=== PATIENT | male | born 1950 | race Caucasian/White ===

== ENCOUNTER 2018-05-02 08:55 | Outpatient (REF) | payer BC, SELFPAY ==
[2018-05-02 22:18] LABS: Anion Gap 7.2 mmol/L (3-11); BUN 21 mg/dL (7-18); CO2 29.8 mmol/L (21.0-32.0); CREATININE 0.95 mg/dL (0.70-1.30); Calcium 8.5 mg/dL (8.5-10.1); Chloride 104 mmol/L (98-107); Glucose 100 mg/dL (70-100); Potassium 4.3 mmol/L (3.5-5.1); Sodium 141 mmol/L (136-145); TSH (W/Ref FT4) 5.47 uIU/mL (0.358-3.74)
[2018-05-02 22:50] LABS: FREE T4 0.88 ng/dL (0.76-1.46)
[2018-05-04 09:35] LABS: PSA, Screening 0.9 ng/ml (0-4.5)
== END 2018-05-02 08:56 ==
LOC: NCHCN 08:55
PROVIDERS: Visit Provider Internal Medicine
DX: M54.5 Low back pain (principal); E05.00 Thyrotoxicosis with diffuse goiter without thyrotoxic crisis or storm; Z12.5 Encounter for screening for malignant neoplasm of prostate; Z80.42 Family history of malignant neoplasm of prostate
CPT/HCPCS: 80048; 84153; 84439; 84443

== ENCOUNTER 2018-09-17 08:57 | Outpatient (REF) | payer BC, SELFPAY ==
[2018-09-17 22:18] LABS: TSH (W/Ref FT4) 0.44 uIU/mL (0.358-3.74)
== END 2018-09-17 09:17 ==
LOC: NCHCN 08:57
PROVIDERS: Visit Provider Internal Medicine
DX: E03.9 Hypothyroidism, unspecified (principal)
CPT/HCPCS: 84443

== ENCOUNTER 2019-05-09 08:04 | Outpatient (REF) | payer BC, SELFPAY ==
[2019-05-09 21:48] LABS: Anion Gap 8.5 mmol/L (3-11); BUN 18 mg/dL (7-18); CO2 27.5 mmol/L (21.0-32.0); CREATININE 0.88 mg/dL (0.70-1.30); Calcium 8.9 mg/dL (8.5-10.1); Calculated LDL 113 mg/dL; Chloride 105 mmol/L (98-107); Cholesterol 179 mg/dL (50-200); Glucose 107 mg/dL (70-100); HDL Cholesterol 52 mg/dL (40-60); Potassium 4.2 mmol/L (3.5-5.1); Sodium 141 mmol/L (136-145); TSH (W/Ref FT4) 0.04 uIU/mL (0.36-3.74); Triglyceride 72 mg/dL (30-150)
[2019-05-09 22:06] LABS: FREE T4 1.44 ng/dL (0.76-1.46)
== END 2019-05-09 08:24 ==
LOC: NCHCN 08:04
PROVIDERS: Visit Provider Internal Medicine
DX: Z00.00 Encounter for general adult medical examination without abnormal findings (principal); E03.9 Hypothyroidism, unspecified; Z13.6 Encounter for screening for cardiovascular disorders; Z13.220 Encounter for screening for lipoid disorders; Z12.5 Encounter for screening for malignant neoplasm of prostate; Z80.42 Family history of malignant neoplasm of prostate
CPT/HCPCS: 80048; 80061; 84153; 84439; 84443

== ENCOUNTER 2019-11-19 08:33 | Outpatient (REF) | payer BC, SELFPAY ==
[2019-11-19 21:51] LABS: Hemoglobin A1C 5.4 % (3.8-5.6)
[2019-11-19 21:56] LABS: Glucose 90 mg/dL (74-106); TSH 0.08 uIU/mL (0.36-3.74)
== END 2019-11-19 08:53 ==
LOC: NCHCN 08:33
PROVIDERS: PCP Internal Medicine; Visit Provider Internal Medicine
DX: R73.03 Prediabetes (principal); E03.9 Hypothyroidism, unspecified
CPT/HCPCS: 82947; 83036; 84443

== ENCOUNTER 2020-02-04 08:40 | Outpatient (REF) | payer BC, SELFPAY ==
[2020-02-04 20:32] LABS: HCT 46.9 % (40.0-50.0); HGB 16.1 g/dL (13.5-17.5); Mean Corp. HGB Concentration 34.3 g/dL (32.0-36.0); Mean Corpuscular Hemoglobin 31.8 pg (27.0-33.0); Mean Corpuscular Volume 92.5 fL (80-95); Mean Platelet Volume 9.7 fL (8.0-11.0); Platelet Count 236 x1000/uL (130-400); RBC 5.07 m/cumm (4.50-6.00); RBC Distribution Width 12.9 % (11.8-14.1); White Blood Cell Count 5.42 k/cumm (4.4-10.8)
[2020-02-04 20:57] LABS: TSH 0.62 uIU/mL (0.36-3.74)
== END 2020-02-04 09:00 ==
LOC: NCHCN 08:40
PROVIDERS: PCP Internal Medicine; Visit Provider Internal Medicine
DX: E03.9 Hypothyroidism, unspecified (principal); D75.1 Secondary polycythemia
CPT/HCPCS: 85027; 84443

== ENCOUNTER 2020-05-19 21:37 | Outpatient (REF) | payer BC, SELFPAY ==
[2020-05-22 11:07] LABS: Patient Race White; SARS-CoV-2 RNA Undetected (Undetected); SARS-CoV-2 Specimen Source Nasal
== END 2020-05-19 21:57 ==
LOC: NCHCN 21:37
PROVIDERS: PCP Internal Medicine; Visit Provider Internal Medicine
DX: Z11.59 Encounter for screening for other viral diseases (principal)
CPT/HCPCS: U0003

== ENCOUNTER 2020-07-08 14:28 | Outpatient (REF) | payer BC, SELFPAY ==
[2020-07-08 21:55] LABS: Abs Immature Grans 0.05 10^3/uL (0.0-0.06); Absolute Basophil Count 0.02 10^3/uL (0.0-0.2); Absolute Eosinophil Count 0.08 10^3/uL (0.0-0.7); Absolute Lymphocyte Count 1.33 10^3/uL (1.2-3.4); Absolute Monocyte Count 0.95 10^3/uL (0.1-0.8); Absolute Neutrophil Count 6.38 10^3/uL (1.2-6.7); Basophils % 0.2; Eosinophils % 0.9; HCT 52.7 % (40.0-50.0); HGB 17.7 g/dL (13.5-17.5); Immature Grans % 0.6; Lymphocytes % 15.1; MCH 31.9 pg (27.0-33.0); MCHC 33.6 % (32.0-36.0); MPV 9.7 fL (8.0-11.0); Monocytes % 10.8; Neutrophils % 72.4; Nucleated RBC 0 %; Platelet Count 257 10^3/uL (130-400); RBC 5.55 10^6/uL (4.36-5.78); RDW 12.6 % (11.8-14.1); RDW-SD 44.3 fL; WBC 8.81 10^3/uL (4.4-10.8)
[2020-07-08 22:10] LABS: Glucose 100 mg/dL (74-106)
== END 2020-07-08 14:48 ==
LOC: NCHCN 14:28
PROVIDERS: PCP Internal Medicine; Visit Provider Internal Medicine
DX: Z00.00 Encounter for general adult medical examination without abnormal findings (principal); E03.9 Hypothyroidism, unspecified; Z80.42 Family history of malignant neoplasm of prostate; R73.03 Prediabetes; R78.89 Finding of other specified substances, not normally found in blood
CPT/HCPCS: 82947; 85025

== ENCOUNTER 2020-07-23 14:26 | Outpatient (REF) | payer BC, SELFPAY ==
[2020-07-23 21:32] LABS: Iron 111 ug/dL (65-175); Total Iron Binding Capacity 326 ug/dL (250-450); Transferrin Sat 34 % (20-55)
[2020-07-23 21:43] LABS: Ferritin 128 ng/mL (26-388)
[2020-07-27 10:54] LABS: Erythropoietin 13.1 mIU/mL (2.6 - 18.5)
== END 2020-07-23 14:46 ==
LOC: NCHCN 14:26
PROVIDERS: PCP Internal Medicine; Visit Provider Internal Medicine
DX: D75.1 Secondary polycythemia (principal)
CPT/HCPCS: 82668; 82728; 83540; 83550

== ENCOUNTER 2021-07-05 17:10 | Outpatient (REF) | payer BC, SELFPAY ==
[2021-07-05 16:27] LABS: Abs Immature Grans 0.01 10^3/uL (0.0-0.06); Absolute Basophil Count 0.03 10^3/uL (0.0-0.2); Absolute Eosinophil Count 0.11 10^3/uL (0.0-0.7); Absolute Lymphocyte Count 1.41 10^3/uL (1.2-3.4); Absolute Monocyte Count 0.81 10^3/uL (0.1-0.8); Absolute Neutrophil Count 2.08 10^3/uL (1.2-6.7); Basophils % 0.7; Eosinophils % 2.5; HCT 51.3 % (40.0-50.0); HGB 16.9 g/dL (13.5-17.5); Immature Grans % 0.2; Lymphocytes % 31.7; MCH 31.5 pg (27.0-33.0); MCHC 32.9 % (32.0-36.0); MCV 95.7 fL (80-95); MPV 9.6 fL (8.0-11.0); Monocytes % 18.2; Neutrophils % 46.7; Nucleated RBC 0 %; Platelet Count 233 10^3/uL (130-400); RBC 5.36 10^6/uL (4.36-5.78); RDW 12.4 % (11.8-14.1); RDW-SD 43.8 fL; WBC 4.45 10^3/uL (4.4-10.8)
[2021-07-05 16:50] LABS: Calculated LDL 124 mg/dL (<100); Cholesterol 196 mg/dL (<200); Glucose 92 mg/dL (74-106); HDL Cholesterol 53 mg/dL (40-60); TSH 3.68 uIU/mL (0.36-3.74); Triglyceride 99 mg/dL (<150)
== END 2021-07-05 17:11 | disposition home or self-care (01) ==
LOC: NCHCN 17:10
PROVIDERS: PCP Internal Medicine; Visit Provider Internal Medicine
DX: R73.03 Prediabetes (principal); E03.9 Hypothyroidism, unspecified; Z12.5 Encounter for screening for malignant neoplasm of prostate
CPT/HCPCS: 80061; 82947; 84153; 84443; 85025

== ENCOUNTER 2022-01-19 08:01 | Outpatient (REF) | payer BC, SELFPAY ==
[2022-01-19 19:26] LABS: ALT 39 U/L (16-63); AST 30 U/L (15-37); Alkaline Phosphatase 55 U/L (46-116); Anion Gap 7.4 mmol/L (3-11); BUN 26 mg/dL (7-18); Bilirubin, Total 0.5 mg/dL (0.2-1.0); CO2 29.6 mmol/L (21.0-32.0); Calcium 8.8 mg/dL (8.5-10.1); Calculated LDL 120 mg/dL (<100); Chloride 106 mmol/L (98-107); Cholesterol 192 mg/dL (<200); Glucose 100 mg/dL (74-106); HDL Cholesterol 54 mg/dL (40-60); Potassium 4.4 mmol/L (3.5-5.1); Sodium 143 mmol/L (136-145); TSH 3.25 uIU/mL (0.36-3.74); Total Protein 7.2 g/dL (6.4-8.2); Triglyceride 94 mg/dL (<150)
== END 2022-01-19 08:02 | disposition home or self-care (01) ==
LOC: NCHCN 08:01
PROVIDERS: PCP Internal Medicine; Visit Provider Internal Medicine
DX: E03.9 Hypothyroidism, unspecified (principal); E78.5 Hyperlipidemia, unspecified
CPT/HCPCS: 80053; 80061; 84443

== ENCOUNTER 2023-10-25 13:37 | Outpatient (REF) | payer BC, SELFPAY ==
[2023-10-25 16:28] LABS: Anion Gap 10.3 mmol/L (3-11); BUN 23 mg/dL (7-18); CO2 26.7 mmol/L (21.0-32.0); Calcium 9.3 mg/dL (8.5-10.1); Calculated LDL 119 mg/dL (<100); Chloride 106 mmol/L (98-107); Cholesterol 194 mg/dL (<200); Estimated GFR 79.47 (mL/min/1.73m2); Glucose 97 mg/dL (74-106); HDL Cholesterol 63 mg/dL (40-60); Potassium 4.1 mmol/L (3.5-5.1); Sodium 143 mmol/L (136-145); Triglyceride 61 mg/dL (<150)
[2023-10-25 16:37] LABS: Hemoglobin A1C 5.2 % (<5.7)
[2023-10-25 22:21] LABS: PSA, Screening 0.8 ng/mL (<=6.5)
== END 2023-10-25 13:38 | disposition home or self-care (01) ==
LOC: NCHCN 13:37
PROVIDERS: PCP Internal Medicine; Visit Provider Internal Medicine
DX: Z00.00 Encounter for general adult medical examination without abnormal findings (principal); R73.03 Prediabetes; Z12.5 Encounter for screening for malignant neoplasm of prostate; Z13.220 Encounter for screening for lipoid disorders; Z13.228 Encounter for screening for other metabolic disorders
CPT/HCPCS: 80048; 80061; 84153; 83036

== ENCOUNTER 2023-11-01 15:23 | Outpatient (REF) | payer BC, SELFPAY ==
[2023-11-01 20:59] LABS: Abs Immature Grans 0.05 10^3/uL (0.0-0.06); Absolute Basophil Count 0.06 10^3/uL (0.0-0.2); Absolute Eosinophil Count 0.11 10^3/uL (0.0-0.7); Absolute Monocyte Count 1.09 10^3/uL (0.1-0.8); Absolute Neutrophil Count 5.41 10^3/uL (1.2-6.7); Basophils % 0.7; Eosinophils % 1.3; HCT 49.3 % (40.0-50.0); HGB 16.8 g/dL (13.5-17.5); Immature Grans % 0.6; Lymphocytes % 21.1; MCH 31.2 pg (27.0-33.0); MCHC 34.1 % (32.0-36.0); MCV 92 fL (80-95); MPV 10.1 fL (8.0-11.0); Monocytes % 12.8; Neutrophils % 63.5; Platelet Count 239 10^3/uL (130-400); RBC 5.38 10^6/uL (4.36-5.78); RDW 12.4 % (11.8-14.1); RDW-SD 42.6 fL; WBC 8.52 10^3/uL (4.4-10.8)
[2023-11-01 21:22] LABS: TSH 1.26 uIU/mL (0.36-3.74)
== END 2023-11-01 15:24 | disposition home or self-care (01) ==
LOC: NCHCN 15:23
PROVIDERS: PCP Internal Medicine; Visit Provider Internal Medicine
DX: D75.1 Secondary polycythemia (principal); E03.9 Hypothyroidism, unspecified
CPT/HCPCS: 84443; 85025

== ENCOUNTER 2024-11-01 11:15 | Outpatient (REF) | payer BC, SELFPAY ==
[2024-11-01 14:38] LABS: HCT 51.2 % (40.0-50.0); MCH 31.7 pg (27.0-33.0); MCHC 33.2 % (32.0-36.0); MCV 96 fL (80-95); MPV 9.8 fL (8.0-11.0); Platelet Count 203 10^3/uL (130-400); RBC 5.36 10^6/uL (4.36-5.78); RDW 12.5 % (11.8-14.1); RDW-SD 43.8 fL; WBC 6.04 10^3/uL (4.4-10.8)
[2024-11-01 14:52] LABS: Hemoglobin A1C 5.4 % (<5.7)
[2024-11-01 14:54] LABS: ALT 35 U/L (16-63); AST 29 U/L (15-37); Alkaline Phosphatase 68 U/L (46-116); Anion Gap 3.4 mmol/L (3-11); BUN 17 mg/dL (7-18); Bilirubin, Total 0.88 mg/dL (0.2-1.0); CO2 32.6 mmol/L (21.0-32.0); CREATININE 1.1 mg/dL (0.70-1.30); Calcium 9.4 mg/dL (8.5-10.1); Calculated LDL 71 mg/dL (<100); Chloride 105 mmol/L (98-107); Cholesterol 149 mg/dL (<200); Estimated GFR 70.01 (mL/min/1.73m2); Glucose 103 mg/dL (74-106); HDL Cholesterol 65 mg/dL (40-60); Potassium 4.8 mmol/L (3.5-5.1); Sodium 141 mmol/L (136-145); TSH 1.54 uIU/mL (0.36-3.74); Total Protein 7.6 g/dL (6.4-8.2); Triglyceride 69 mg/dL (<150)
== END 2024-11-01 11:16 | disposition home or self-care (01) ==
LOC: NCHCN 11:15
PROVIDERS: PCP Internal Medicine; Visit Provider Internal Medicine
DX: E78.5 Hyperlipidemia, unspecified (principal); R73.03 Prediabetes; E03.9 Hypothyroidism, unspecified
CPT/HCPCS: 80053; 80061; 85027; 83036; 84443

== ENCOUNTER 2025-01-06 16:18 | Outpatient (REF) | payer BC, SELFPAY ==
[2025-01-06 21:36] LABS: Bilirubin Negative (Negative); Blood Trace-intact (Negative); Clarity Clear (Clear); Glucose Negative (Negative); Ketones Negative (Negative); Leukocyte Esterase Negative (Negative); Nitrite Negative (Negative); Specific Gravity 1.025 (1.005-1.025); Urobilinogen 0.2 mg/dL (Up to 0.2); pH 5.5 (5-8)
[2025-01-06 21:44] LABS: Bacteria Rare HPF (Negative); C & S Indicated? No; Crystals Negative HPF (Negative); Epithelial Cells Rare HPF (Negative); Mucus Negative (Negative); WBC 0-2 HPF (0-5)
== END 2025-01-06 16:19 | disposition home or self-care (01) ==
LOC: NCHCN 16:18
PROVIDERS: PCP Internal Medicine; Visit Provider Internal Medicine
DX: R31.0 Gross hematuria (principal)
CPT/HCPCS: 81003; 81015

== ENCOUNTER 2025-01-29 15:22 | Outpatient (REF) | payer BC, SELFPAY ==
[2025-01-29 21:51] LABS: Bilirubin Negative (Negative); Blood Trace-intact (Negative); Clarity Clear (Clear); Glucose Negative (Negative); Ketones Negative (Negative); Leukocyte Esterase Negative (Negative); Nitrite Negative (Negative); Urobilinogen 0.2 mg/dL (Up to 0.2); pH 5.5 (5-8)
[2025-01-29 22:14] LABS: Bacteria Negative HPF (Negative); C & S Indicated? No; Casts Negative LPF (Negative); Crystals Negative HPF (Negative); Epithelial Cells Rare HPF (Negative); Mucus Negative (Negative); RBC 0-2 HPF (0-2); WBC Negative HPF (0-5)
[2025-01-30 18:19] LABS: PSA, Screening 0.9 ng/mL (<=6.5)
== END 2025-01-29 15:23 | disposition home or self-care (01) ==
LOC: NCHCN 15:22
PROVIDERS: PCP Internal Medicine; Visit Provider Internal Medicine
DX: R31.29 Other microscopic hematuria (principal); Z12.5 Encounter for screening for malignant neoplasm of prostate
CPT/HCPCS: 84153; 81003; 81015